=== PATIENT | female | born 1990 | race Caucasian/White ===

== ENCOUNTER 2017-11-01 09:08 | Emergency (ER) | payer SELFPAY ==
[~2017-11-01] VITALS: Ht 170.2 cm; Wt 68.2 kg
[2017-11-01 09:13] VITALS: Ht 170.2 cm; Wt 68.2 kg
[2017-11-01 09:44] VITALS: BP 131/87
[2017-11-08 19:10] LABS: AEROBE ID Final report (())
== END 2017-11-01 09:49 | disposition home or self-care (01) ==
LOC: D.ER 09:08
PROVIDERS: Emergency Medicine
DX: J03.90 Acute tonsillitis, unspecified (principal); F17.200 Nicotine dependence, unspecified, uncomplicated

== ENCOUNTER 2017-11-29 16:49 | Emergency (ER) | payer MEDICAID ==
[~2017-11-29] VITALS: Ht 170.2 cm; Wt 63.6 kg
[2017-11-29 16:54] VITALS: Ht 170.2 cm; Wt 63.6 kg
[2017-11-29] MEDS ORDERED: FLUTICASONE PRO16 GM NASAL (19:23)
[2017-11-29] MEDS ORDERED: AUGMENTIN 875-11 TAB PO (19:23)
[2017-11-29 19:33] VITALS: BP 103/66
== END 2017-11-29 19:33 | disposition home or self-care (01) ==
LOC: D.ER 16:49
DX: J01.00 Acute maxillary sinusitis, unspecified (principal); H92.01 Otalgia, right ear

== ENCOUNTER 2019-02-01 16:07 | Emergency (ER) | payer MEDICAID ==
[~2019-02-01] VITALS: Ht 170.2 cm; Wt 77.3 kg
[~2019-02-01 16:07] MED LIST: AUGMENTIN 875-11 TAB PO; FLUTICASONE PRO16 GM NASAL
[2019-02-01 16:34] VITALS: Ht 170.2 cm; Wt 77.3 kg
[2019-02-01] MEDS ORDERED: TORADOL10 MG PO (17:19)
[2019-02-01] MEDS ORDERED: CYCLOBENZAPRINE10 MG PO (17:19)
[2019-02-01 18:07] VITALS: BP 124/89
== END 2019-02-01 18:08 | disposition home or self-care (01) ==
LOC: D.ER 16:07
DX: M62.830 Muscle spasm of back (principal); S39.012A Strain of muscle, fascia and tendon of lower back, initial encounter; X50.1XXA Overexertion from prolonged static or awkward postures, initial encounter; Y93.9 Activity, unspecified; Y92.9 Unspecified place or not applicable